=== PATIENT | female | born 1990 | race Hispanic/Latino ===

== ENCOUNTER 2021-06-02 11:05 | Emergency (ER) | payer OTHER ==
[~2021-06-02] VITALS: Ht 154.9 cm; Wt 49.4 kg
[2021-06-02 11:12] VITALS: BP 125/63
[2021-06-02 11:40] LABS: BASOPHILS % (AUTO) 0.4 % (0.0-5.0); EOSINOPHILS % (AUTO) 0.4 % (0.0-8.0); HEMATOCRIT 40.6 % (36-48); LYMPHOCYTES % (AUTO) 7.6 % (21.0-51.0); MEAN CORPUSCULAR HEMOGLOBIN 30.4 pg (27.0-33.0); MEAN CORPUSCULAR VOLUME 89.4 fL (79-99); MONOCYTES % (AUTO) 3.5 % (3.0-13.0); NEUTROPHILS % (AUTO) 87.8 % (40.0-77.0); PLATELET COUNT (AUTO) 281 K/uL (130-400); RED BLOOD CELL COUNT(AUTO) 4.54 MIL/uL (4.00-5.50); RED CELL DISTRIBUTION WIDTH 11.6 % (11.0-15.5); WHITE BLOOD COUNT (AUTO) 12.2 K/uL (4.8-10.8)
[2021-06-02 11:45] LABS: CREATININE 0.8 mg/dL (0.5-1.5); POTASSIUM 4.1 mmol/L (3.5-5.1)
[2021-06-02 11:49] LABS: ALBUMIN 3.8 g/dL (3.5-5.0); BILIRUBIN,TOTAL 0.8 mg/dL (0.2-1.0)
[2021-06-02] MEDS ORDERED: LACTATED RINGERS 1000ML 1,000 ML IV ONE (12:00)
[2021-06-02] MEDS ORDERED: MORPHINE 4 MG SYG IVP ONE (12:00)
[2021-06-02] MEDS ORDERED: ONDANSETRON 4MG INJ IVP ONE (12:00)
[2021-06-02] MEDS ORDERED: KETOROLAC 30MG VIAL (30MG/ML) IVP ONE (12:00)
[2021-06-02] MEDS ORDERED: IOHEXOL-350 75 ML VIAL IV ONE (13:12)
[2021-06-02] MEDS ORDERED: DIATR MEGLU/DIATRIZOATE SODIUM 30 ML BOTTLE ONE (13:13)
[2021-06-02 15:21] LABS: APPEARANCE,URINE Clear (CLEAR); BILIRUBIN,URINE Negative (NEGATIVE); COLOR,URINE Yellow (YELLOW); GLUCOSE, URINE (UA) Negative (NEGATIVE); KETONES,URINE Negative (NEGATIVE); LEUKOCYTE ESTERASE ,URINE Trace (NEGATIVE); NITRATE,URINE Negative (NEGATIVE); OCCULT BLOOD,URINE Negative (NEGATIVE); PROTEIN,URINE Negative (NEGATIVE); UROBILINOGEN,URINE 0.2 mg/dL (0.2-1.0)
[2021-06-02 15:40] LABS: RBC,URINE 0-1 /HPF (0-1)
[2021-06-02 15:41] LABS: BACTERIA,URINE Rare /HPF (None Seen); SQUAMOUS EPITHELIAL CELL,UR Few /HPF (0-2); TRANSITIONAL EPI CELLS,URINE Rare /HPF (None Seen)
[2021-06-02 17:39] VITALS: BP 128/89
[2021-06-02] MEDS ORDERED: IBUP-2076 PO (17:49)
[2021-06-02] MEDS ORDERED: KETOROLAC 30MG VIAL (30MG/ML) IV ONE (18:00)
== END 2021-06-02 18:17 | disposition home or self-care (01) ==
LOC: EDH 11:05
DX: N23 Unspecified renal colic (principal); Z79.1 Long term (current) use of non-steroidal anti-inflammatories (NSAID); Z79.899 Other long term (current) drug therapy
CPT/HCPCS: 36415; 74177; 80053; 81001; 82150; 83690; 84703; 85025; 96361 ×2; 96374; 96375; 99285; J1885 ×2; J2270; J2405; J7120; Q9963; Q9967

== ENCOUNTER 2025-06-10 10:46 | Emergency (ER) | payer SELFPAY ==
[~2025-06-10] VITALS: Ht 154.9 cm; Wt 53.1 kg
[~2025-06-10 10:46] MED LIST: IBUP-2076 PO
--- NOTE | 2025-06-10 11:05 | ERN ---
General Chief Complaint: Abdominal Pain Stated Complaint: ABD PAIN Time Seen by MD: 10:48 Time Seen by Midlevel: 10:48 Source: patient History of Present Illness Initial Comments The patient is a 35-year-old female with no significant past medical history presenting to the emergency department for evaluation of midepigastric/right upper quadrant abdominal pain that started at approximately 2:00 a.m. today and progressively worsened. The patient denies any previous surgical history. Denies being and admits to currently being on her period. She reports mild nausea but denies any vomiting, fever, chills, or any other symptoms at this time Allergies: Coded Allergies: No Known Drug Allergies (Unverified Allergy, Unknown, 06/02/21) Home Meds Active Scripts Ondansetron (Ondansetron Odt) 4 Mg Tab.rapdis, 4 MG PO BID for 7 Days, #14 TAB Prov:CRICKET ACOSTA 06/10/25 Ketorolac Tromethamine (Ketorolac Tromethamine) 10 Mg Tablet, 1 TAB PO TID for pain for 5 Days, #15 TAB 0 Refills Prov:CRICKET ACOSTA 06/10/25 Ibuprofen (Ibuprofen) 400 Mg Tablet, 400 MG PO Q6HPRN PRN for PAIN, #30 TAB Prov:DEXTER VAZQUEZ MD 06/02/21 Past Medical History Past Medical History: No Pertinent History Past Surgical History: None Surgical History Other: EAR, NOSE, THROAT Family History Family History: Negative Social History Social History: Negative Female( History) LMP: Jun 10, 2025 : 3 Para: 3 Aborts: 0 ROS Dictation CONSTITUTIONAL: Negative except for HPI HEAD/FACE: Negative except for HPI EENT: Negative except for HPI RESPIRATORY: Negative except for HPI GASTROINTESTINAL/ABDOMINAL: Negative except for HPI GENITOURINARY: Negative except for HPI MUSCULOSKELETAL: Negative except for HPI INTEGUMENTARY: Negative except for HPI NEUROLOGICAL/PSYCH: Negative except for HPI HEMATOLOGIC/LYMPHATIC: Negative except for HPI All Systems Negative, Except as noted above. 13 point review of systems assessed and all negative except for above. Physical Exam Physical Exam Dictation Vital Signs reviewed General Appearance: Alert, oriented x 3, no acute distress, well developed, nourished. Head and Face: non-traumatic. Eyes: PERRL, pink conjunctivas, eyelid no trauma, anterior chamber with arcus senilis. Ears: Pinnas intact and no signs of trauma or erythema ear canals clear and no discharge TM no erythema Nose: No discharge, no bleeding. Oropharynx: Mouth normal, tongue pink, pharynx clear,no erythema, tonsils no exudates, no abscesses noted, mucous membrane moist Neck: Supple, non-tender, no thyromegaly, no masses, no JVD, no bruits Breast:Deferred Chest:No tenderness, no crepitus, no paradoxical movement, no retractions Lungs:Clear, well-ventilated, symmetric, no rales, no wheezing, no rhonchi, no stridor, good breath sounds bilaterally Heart: Regular rate, regular rhythm, no murmur, no gallops Vascular: no peripheral edema, Abdomen: Soft, positive bowel sounds, nondistended, no guarding, Midepigastric abdominal tenderness, right upper quadrant abdominal tenderness, no rebound, no masses no hepatomegaly, no splenomegaly, no Velasquez's sign, no hernias. Rectal: Deferred Genital: Deferred Neurological: Normal speech, motor function intact, sensory function intact Musculoskeletal: Neck nontender, full range of motion, back nontender, full range of motion, Extremities: nontender, full range of motion Skin: Color pink, dry, no turgor, no rash, no lacerations, no abrasions, no contusions. Lymphatic: Deferred Results Laboratory and Microbiology Lab and Micro Result Laboratory Tests Test 06/10/25 11:07 06/10/25 11:34 White Blood Count 8.6 K/uL (4.8-10.8) Red Blood Count 4.49 MIL/uL (4.00-5.50) Hemoglobin 13.7 g/dL (12.0-16.0) Hematocrit 39.4 % (36-48) Mean Corpuscular Volume 87.8 fL (79-99) Mean Corpuscular Hemoglobin 30.5 pg (27.0-33.0) Mean Corpuscular Hemoglobin Concent 34.8 g/dL (32.0-36.0) Red Cell Distribution Width 11.6 % (11.0-15.5) Platelet Count 274 K/uL (130-400) Mean Platelet Volume 10.5 fL (7.5-10.5) Immature Granulocyte % (Auto) 0.7 % (0-1) Neutrophils (%) (Auto) 83.4 % (40.0-77.0) H Lymphocytes (%) (Auto) 9.2 % (21.0-51.0) L Monocytes (%) (Auto) 5.5 % (3.0-13.0) Eosinophils (%) (Auto) 0.7 % (0.0-8.0) Basophils (%) (Auto) 0.5 % (0.0-5.0) Neutrophils # (Auto) 7.2 K/uL (1.8-7.7) Lymphocytes # (Auto) 0.8 K/uL (1.0-4.8) L Monocytes # (Auto) 0.5 K/uL (0.1-1.0) Eosinophils # (Auto) 0.06 K/uL (0.00-0.70) Basophils # (Auto) 0.04 K/uL (0.00-0.20) Absolute Immature Granulocyte (auto 0.06 K/uL (0-1) Nucleated Red Blood Cells 0.0 % (0.0-0.19) White Cell Morphology Comment See comments Sodium Level 139 mmol/L (136-145) Potassium Level 3.4 mmol/L (3.5-5.1) L Chloride Level 103 mmol/L (101-111) Carbon Dioxide Level 24 mmol/L (21-32) Blood Urea Nitrogen 10 mg/dL (7-18) Creatinine 0.7 mg/dL (0.5-1.0) Glomerular Filtration Rate Calc 115 mL/min (>90) Random Glucose 131 mg/dL (70-105) H Total Calcium 8.8 mg/dL (8.5-10.1) Total Bilirubin 1.4 mg/dL (0.2-1.0) H Aspartate Amino Transf (AST/SGOT) 37 U/L (10-37) Alanine Aminotransferase (ALT/SGPT) 65 U/L (12-78) Alkaline Phosphatase 49 U/L (50-136) L Total Protein 8.1 g/dL (6.0-8.3) Albumin 3.9 g/dL (3.5-5.0) Lipase 48 U/L (16-77) Serum Test, Qualitative NEGATIVE (NEGATIVE) Urine Color YELLOW (YELLOW) Urine Appearance CLEAR (CLEAR) Urine pH 7.5 (5.0-8.0) Urine Specific [place] 1.021 (1.001-1.031) Urine Protein NEGATIVE mg/dL (NEGATIVE) Urine Glucose (UA) NEGATIVE mg/dL (NEGATIVE) Urine Ketones 5 mg/dL (NEGATIVE) H Urine Occult Blood LARGE (NEGATIVE) H Urine Nitrate NEGATIVE (NEGATIVE) Urine Bilirubin NEGATIVE mg/dL (NEGATIVE) Urine Urobilinogen 0.2 mg/dL (0.2-1.0) Urine Leukocyte Esterase NEGATIVE Deanne/uL Urine RBC 51-100 /HPF (0-1) H Urine WBC 2-5 /HPF (0-1) H Urine Squamous Epithelial Cells FEW /HPF (0-2) Urine Bacteria FEW /HPF (None Seen) Labs Reviewed?: Yes MDM MDM: The patient is a 35-year-old female with no significant past medical history presenting to the emergency department for evaluation of midepigastric/ right upper quadrant abdominal pain that started at approximately 2:00 a.m. today and progressively worsened. The patient denies any previous surgical history. Denies being and admits to currently being on her period. She reports mild nausea but denies any vomiting, fever, chills, or any other symptoms at this time On physical examination the patient has right upper quadrant abdominal tenderness with no rebound or guarding. Vital signs are stable. Patient is afebrile and nontoxic appearing. CBC shows no leukocytosis, no anemia, no thrombocytopenia. Chemistries show a mildly elevated bilirubin at one four. CT of the abdomen/pelvis reveals evidence of cholelithiasis however ultrasound was recommended. Right upper quadrant ultrasound reveals cholelithiasis no evidence of acute cholecystitis. The patient was given pain medication in the emergency department and will be discharged home with outpatient follow up with General surgery for further evaluation. Differential diagnosis: Acute cholecystitis, pancreatitis, cholelithiasis There are no social concerns with this patient. Prescription drug management Prescriptions will include: Zofran and Toradol Medical management and examination interpretation discussions were had by me with other qualified healthcare professionals as indicated for the patient's care. ED Course Orders Procedure Category Date Status Time Cbc With Differential LAB 06/10/25 Complete 10:52 Comprehensive LAB 06/10/25 Complete Metabolic Panel 10:52 Lipase LAB 06/10/25 Complete 10:52 Urinalysis Profile LAB 06/10/25 Complete 10:52 Testing, LAB 06/10/25 Complete Serum Hcg 10:52 Ct Abdomen/Pelvis W/O CT 06/10/25 Resulted Contrast 10:52 Ondansetron 4mg Inj PHA 06/10/25 Complete (Zofran 4mg Inj) 11:00 Famotidine 20mg Vial PHA 06/10/25 Complete (Pepcid 20mg Vial) 11:00 Ketorolac PHA 06/10/25 Complete Tromethamine 15mg/Ml 11:00 Us Abdominal Ruq\Ltd US 06/10/25 Resulted 12:46 Ketorolac PHA 06/10/25 Complete Tromethamine 15mg/Ml 14:30 Ondansetron 4mg Inj PHA 06/10/25 Complete (Zofran 4mg Inj) 14:30 Current Medications Medications (Trade) Dose Ordered Sig/Swetha Route PRN Reason Start Time Stop Time Status Last Admin Dose Admin Famotidine (Pepcid 20mg Vial) 20 mg ONCE ONCE IV 06/10/25 11:00 06/10/25 11:01 DC 06/10/25 12:15 Ketorolac Tromethamine (toRADol) 15 mg ONCE ONCE IV 06/10/25 11:00 06/10/25 11:01 DC 06/10/25 12:15 Ketorolac Tromethamine (toRADol) 15 mg ONCE ONCE IV 06/10/25 14:30 06/10/25 14:31 DC Ondansetron HCl (zoFRAN 4MG INJ) 4 mg ONCE ONCE IVP 06/10/25 11:00 06/10/25 11:01 DC 06/10/25 12:15 Ondansetron HCl (zoFRAN 4MG INJ) 4 mg ONCE ONCE IVP 06/10/25 14:30 06/10/25 14:31 DC Vital Signs Date Time Temp Pulse Resp B/P (MAP) Pulse Ox O2 Delivery O2 Flow Rate FiO2 06/10/25 12:25 99.3 58 18 101/66 98 Room Air* 0 21 06/10/25 10:49 98.6 94 20 105/69 98 Room Air 0 [place] [address] [address] IMAGING REPORT Signed PATIENT: ANTWAN LION MR#: [id number] : 1990 SEX: F AGE: 35 LOCATION: [facility] ORDER 53 STATUS: [facility] REPORT#: [id number] SERVICE 1052 REASON: mid epigastric abd pain/ruq abd pain ORDERING PHYSICIAN: CRICKET ACOSTA PROCEDURE: ABD PEL WO - CT ABDOMEN/PELVIS W/O CONTRAST EXAM: CT Abdomen and Pelvis Without IV contrast. CLINICAL HISTORY: Mid-epigastric abdominal pain / right upper quadrant abdominal pain. TECHNIQUE: Axial computed tomography images of the abdomen and pelvis without intravenous contrast. CONTRAST: No IV contrast. COMPARISON: CT Abdomen/Pelvis with contrast ??? 06/02/21. FINDINGS: LUNG BASES: The lung bases appear clear. No pleural effusions are seen. LIVER: Unremarkable. GALLBLADDER AND BILE DUCTS: Few intraluminal hypodensities are seen in the gallbladder, possibly representing intraluminal calculi. Recommend right upper quadrant ultrasound for further evaluation. No biliary ductal dilatation is evident. PANCREAS: Unremarkable. SPLEEN: Unremarkable. ADRENAL GLANDS: Unremarkable. KIDNEYS, URETERS, AND BLADDER: The kidneys appear within normal limits. There is no hydronephrosis or hydroureter. There is a 0.3 cm nonobstructing calculus within the midpole of the right kidney. STOMACH AND BOWEL: Unremarkable appearance of the stomach and bowel. No evidence of bowel obstruction. No evidence suggesting enteritis or colitis. Mild constipation. APPENDIX: No CT evidence for acute appendicitis. PERITONEUM: No free fluid. No free air. Small umbilical hernia containing fat. LYMPH NODES: No lymphadenopathy is evident. REPRODUCTIVE: Unremarkable as visualized. VASCULATURE: No evidence of abdominal aortic aneurysm. BONES: No aggressive-appearing osseous lesion. No acute osseous pathology evident.IMPRESSION: 1. Gallbladder with intraluminal hypodensities and air foci, possibly representing calculi. Recommend right upper quadrant ultrasound for further evaluation. /[place] DICTATED BY: HERIBERTO GRIMALDO Jr., MD DATE: 06/10/251342 ELECTRONICALLY SIGNED BY: HERIBERTO GRIMALDO Jr., MD DATE: 06/10/251342 [place] [address] [place] [address] IMAGING REPORT Signed PATIENT: ANTWAN LION MR#: [id number] : 1990 SEX: F AGE: 35 LOCATION: [facility] ORDER [id number] STATUS: REG ER REPORT#: [id number] SERVICE 1246 REASON: r/o acute cholecystitis ORDERING PHYSICIAN: CRICKET ACOSTA PROCEDURE: ABDRUQLTD - US ABDOMINAL RUQ\LTD EXAM: US Abdomen, Right Upper Quadrant. CLINICAL HISTORY: r/o acute cholecystitis TECHNIQUE: Right upper quadrant sonography performed with image documentation. COMPARISON: None provided. FINDINGS: LIVER: Within normal limits in size and echogenicity, measures 13.0 cm. No mass. GALLBLADDER: The gallbladder is distended with mobile gallstones. No gallbladder wall thickening seen. COMMON BILE DUCT: Within normal limits in size. PANCREAS: The visualized pancreas appears within normal limits. The distal pancreas is obscured by bowel gas. RIGHT KIDNEY: Unremarkable, measures 10.8 x 4.2 x 4.5cm. Normal renal contours. No renal mass or calculus. No hydronephrosis. IMPRESSION: 1. No acute findings. Mobile gallstones without evidence of acute cholecystitis. If there is persistent clinical concern for acute cholecystitis recommend a hepatobiliary (HIDA) scan for further evaluation. /[place] DICTATED BY: HERIBERTO GRIMALDO Jr., MD DATE: 06/10/251530 ELECTRONICALLY SIGNED BY: HERIBERTO GRIMALDO Jr., MD DATE: 06/10/25 153 DX & DISP Disposition: Discharge Departure Impression: Primary Impression: Cholelithiasis Condition: Stable Scripts Ondansetron (Ondansetron Odt) 4 Mg Tab.rapdis 4 MG PO BID for 7 Days, #14 TAB Prov: CRICKET ACOSTA 06/10/25 Ketorolac Tromethamine (Ketorolac Tromethamine) 10 Mg Tablet 1 TAB PO TID for pain for 5 Days, #15 TAB 0 Refills Prov: CRICKET ACOSTA 06/10/25 Referrals: SELF,REFERRAL (PCP) LANRE ROBBINS MD Time of Disposition: 14:28 I have reviewed the case, and I agree with, Diagnosis and Plan I performed the substantive portion of the visit. I have reviewed and personally made and approve the management plan that is documented in the note by myself or the MECCA. I acknowledge for responsibility for the patient's management plan. CRICKET ACOSTA Jun 10, 2025 11:05
[2025-06-10 11:12] LABS: IMMATURE GRANULOCYTE ABSOLUTE 0.06 K/uL (0-1); NUCLEATED RED BLOOD CELLS 0.0 % (0.0-0.19); PLATELET COUNT (AUTO) 274 K/uL (130-400); RED BLOOD CELL COUNT(AUTO) 4.49 MIL/uL (4.00-5.50); RED CELL DISTRIBUTION WIDTH 11.6 % (11.0-15.5); WHITE BLOOD COUNT (AUTO) 8.6 K/uL (4.8-10.8)
--- NOTE | 2025-06-10 11:16 | NUR ---
PENDING TEST RESULTS FOR CT EXAM.
[2025-06-10 11:26] LABS: CREATININE 0.7 mg/dL (0.5-1.0); GLOMERULAR FILTR. RATE CALC 115.0 mL/min (>90); GLUCOSE,RANDOM 131.0 mg/dL (70-105); SODIUM SERUM 139.0 mmol/L (136-145); UREA NITROGEN, BLOOD 10.0 mg/dL (7-18)
[2025-06-10 11:31] LABS: ASPARTATE AMINOTRANSFERASE 37.0 U/L (10-37); TOTAL PROTEIN, SERUM 8.1 g/dL (6.0-8.3)
[2025-06-10 11:41] LABS: ADD UA MICROSCOPIC YES; APPEARANCE,URINE CLEAR (CLEAR); GLUCOSE, URINE (UA) NEGATIVE (NEGATIVE); LEUKOCYTE ESTERASE ,URINE NEGATIVE Leu/uL (NEGATIVE); NITRATE,URINE NEGATIVE (NEGATIVE); OCCULT BLOOD,URINE LARGE (NEGATIVE)
[2025-06-10 11:44] LABS: SQUAMOUS EPITHELIAL CELL,UR FEW /HPF (0-2)
[2025-06-10] MEDS: FAMOTIDINE 20MG VIAL IV ONE (12:15)
--- NOTE | 2025-06-10 12:44 | HMCIMG ---
EXAM: CT Abdomen and Pelvis Without IV contrast. CLINICAL HISTORY: Mid-epigastric abdominal pain / right upper quadrant abdominal pain. TECHNIQUE: Axial computed tomography images of the abdomen and pelvis without intravenous contrast. CONTRAST: No IV contrast. COMPARISON: CT Abdomen/Pelvis with contrast ??? 06/02/21. FINDINGS: LUNG BASES: The lung bases appear clear. No pleural effusions are seen. LIVER: Unremarkable. GALLBLADDER AND BILE DUCTS: Few intraluminal hypodensities are seen in the gallbladder, possibly representing intraluminal calculi. Recommend right upper quadrant ultrasound for further evaluation. No biliary ductal dilatation is evident. PANCREAS: Unremarkable. SPLEEN: Unremarkable. ADRENAL GLANDS: Unremarkable. KIDNEYS, URETERS, AND BLADDER: The kidneys appear within normal limits. There is no hydronephrosis or hydroureter. There is a 0.3 cm nonobstructing calculus within the midpole of the right kidney. STOMACH AND BOWEL: Unremarkable appearance of the stomach and bowel. No evidence of bowel obstruction. No evidence suggesting enteritis or colitis. Mild constipation. APPENDIX: No CT evidence for acute appendicitis. PERITONEUM: No free fluid. No free air. Small umbilical hernia containing fat. LYMPH NODES: No lymphadenopathy is evident. REPRODUCTIVE: Unremarkable as visualized. VASCULATURE: No evidence of abdominal aortic aneurysm. BONES: No aggressive-appearing osseous lesion. No acute osseous pathology evident.IMPRESSION: 1. Gallbladder with intraluminal hypodensities and air foci, possibly representing calculi. Recommend right upper quadrant ultrasound for further evaluation. /[place]
[2025-06-10] MEDS ORDERED: KETO10TA2 PO (14:28)
[2025-06-10] MEDS ORDERED: ONDA-243 PO (14:28)
--- NOTE | 2025-06-10 14:32 | HMCIMG ---
EXAM: US Abdomen, Right Upper Quadrant. CLINICAL HISTORY: r/o acute cholecystitis TECHNIQUE: Right upper quadrant sonography performed with image documentation. COMPARISON: None provided. FINDINGS: LIVER: Within normal limits in size and echogenicity, measures 13.0 cm. No mass. GALLBLADDER: The gallbladder is distended with mobile gallstones. No gallbladder wall thickening seen. COMMON BILE DUCT: Within normal limits in size. PANCREAS: The visualized pancreas appears within normal limits. The distal pancreas is obscured by bowel gas. RIGHT KIDNEY: Unremarkable, measures 10.8 x 4.2 x 4.5cm. Normal renal contours. No renal mass or calculus. No hydronephrosis. IMPRESSION: 1. No acute findings. Mobile gallstones without evidence of acute cholecystitis. If there is persistent clinical concern for acute cholecystitis recommend a hepatobiliary (HIDA) scan for further evaluation. /[place]
[2025-06-10 15:00] VITALS: BP 101/64; PULSE 60; RESP 17; TEMP 99; O2SAT 99
== END 2025-06-10 16:15 | disposition home or self-care (01) ==
LOC: EDH 10:46
DX: K80.20 Calculus of gallbladder without cholecystitis without obstruction (principal); Z79.899 Other long term (current) drug therapy
CPT/HCPCS: 99285; 74176; 96374; 96375; 76705; 80053; 84703; 83690; 85025; 81001; 36415; 96376; J1885 ×2; J1308; J2405 ×2